=== PATIENT | female | born 1965 | race American Indian/Alaskan Native ===

== ENCOUNTER 2024-04-16 08:30 | Day surgery (SDC) | payer OTHER ==
[2024-04-15 08:52] VITALS: BMI 32.3
[~2024-04-16 08:30] MED LIST: LIDOCAINE 1% (10MG/ML) FOR IV START INTRADERMA PRN
[2024-04-16] MEDS: IV FLUID CONTINUATION 1,000 ML IV ONE ×2 (09:22→14:53)
[2024-04-16] MEDS: LACTATED RINGERS 1,000 ML IV SCH (09:24)
[2024-04-16] MEDS: MIDAZOLAM 2 MG/2 ML VIAL IV ONE (10:27)
--- NOTE | 2024-04-16 10:27 | NM ---
EXAMINATION TYPE: NM sentinel node injection DATE OF EXAM: 04/16/2024 COMPARISON: NONE CLINICAL INDICATION: Female, 58 years old with history of biopsy proven left breast cancer, scheduled for double mastectomy. TECHNIQUE AND FINDINGS: The procedure of sentinel lymph node injection was explained to the patient. The benefits, alternatives, and risks were discussed. An informed consent was then obtained. Overlying skin is cleaned with sterile alcohol. Following this, 497 uCi Tc99m Tilmanocept was inject ed in the upper outer aspect of the left nipple intradermally. The patient tolerated the procedure well without any immediate complication. The patient was kept in the radiology department for short stay after the procedure and then taken to surgery for surgical p rocedure what is presumed intraoperative gamma probe will be used for sentinel lymph node detection. IMPRESSION: Left breast radiotracer injection for sentinel node localization as above. [facility], , 04/16/2024 10:24 AM
--- NOTE | 2024-04-16 10:32 | P.NAPBC ---
NAPBC Queries - NAPBC Queries Was patient's case review presented at [facility] tumor board? If no, comment.: Yes Was patient's pathology reviewed at [facility]? If no, comment.: Yes Was breast conservation surgery offered? If no, comment.: Yes (patient declined) Was sentinel node biopsy offered? If no, comment.: Yes Was diagnosis confirmed by percutaneous core biopsy? 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
[2024-04-16] MEDS: ACETAMINOPHEN TAB 500 MG TAB PO PRN (10:53)
[2024-04-16] MEDS: HEPARIN SODIUM,PORCINE 5,000 UNIT/ML 1 ML VIAL SQ PRN (10:54)
[2024-04-16] MEDS: ONDANSETRON 4 MG/2 ML VIAL IVP ONE (10:54)
[2024-04-16] MEDS: DEXAMETHASONE SOD PHOSPHATE 4 MG/ML 1 ML VIAL IV ONE (10:54)
[2024-04-16 10:56] LABS: Glucose,Whole Blood 85 mg/dL (70-110)
[2024-04-16] MEDS ORDERED: DEXAMETHASONE SOD PHOSPHATE 4 MG/ML 1 ML VIAL ONE (10:58)
[2024-04-16] MEDS ORDERED: KETAMINE HCL IN 0.9 % NACL 50 MG/5 ML SYRINGE ONE (10:58)
[2024-04-16] MEDS ORDERED: PHENYLEPHRINE-0.9% NACL SYG 1,000 MCG/10 ML SYRINGE ONE (10:58)
[2024-04-16] MEDS ORDERED: HYDROmorphone (PF) 1 MG/ML ONE (10:58)
[2024-04-16] MEDS ORDERED: fentaNYL (PF) 50 MCG/ML 2 ML AMP ONE (10:58)
[2024-04-16] MEDS ORDERED: SODIUM CHLORIDE 0.9% (PF) 10 ML VIAL ONE (10:58)
[2024-04-16] MEDS ORDERED: MIDAZOLAM 2 MG/2 ML VIAL ONE (10:58)
[2024-04-16] MEDS ORDERED: ROPIVACAINE 5 MG/ML 30 ML VIAL ONE (10:58)
[2024-04-16] MEDS ORDERED: PROPOFOL 10 MG/ML 20 ML VIAL IV ONE (10:58)
[2024-04-16] MEDS ORDERED: GLYCOPYRROLATE 0.2 MG/ML 2 ML VIAL ONE (10:58)
[2024-04-16] MEDS ORDERED: LIDOCAINE 1% INJ 10MG/ML (20 ML MDV) ONE (10:58)
[2024-04-16] MEDS ORDERED: SUCCINYLCHOLINE CHLORIDE 200 MG/10 ML VIAL IV ONE (10:58)
[2024-04-16] MEDS: SODIUM CHLORIDE 0.9% 100 ML with ceFAZolin 2,000 MG IV ONE (11:03)
[2024-04-16] MEDS: LIDOCAINE 1% INJ 10MG/ML (20 ML MDV) SQ ONE ×2 (11:34→14:22)
--- NOTE | 2024-04-16 12:46 | P.ANPRN ---
Procedure Note - Anesthesia - Nerve Block Performed Bilateral Erector Spinae Single Time Out Performed: Yes Date of Procedure: 04/16/24 Procedure Start Time: : Procedure Stop Time: :38 Location of Patient: PreOp Indication: Acute Post-Operative Pain, Requested by Surgeon Sedation Type: Sedate with meaningful contact maintained Preparation: Sterile Prep Position: Prone Needle Types: Pajunk Needle Gauge: 21 Ultrasound used to visualize needle placement: Yes Ultrasound used to observe medication spread: Yes Blood Aspirated: No Pain Paresthesia on Injection Noted: No Resistance on Injection: Normal Image Stored and Saved: Yes Events: Uneventful and Well Tolerated (Ropivacaine 0.5% 15 cc plus normal saline 10 cc plus dexamethasone 4 mg given bilaterally at T4)
[2024-04-16] MEDS: LACTATED RINGERS 1,000 ML IV ONE (12:56)
[2024-04-16] MEDS ORDERED: MELATONIN 3 MG TABLET PO PRN (14:21)
[2024-04-16] MEDS ORDERED: MORPHINE SULFATE 4 MG/ML SYRINGE IVP PRN (14:21)
[2024-04-16] MEDS ORDERED: NALOXONE 0.4 MG/ML 1 ML VIAL IV PRN (14:21)
[2024-04-16] MEDS ORDERED: ONDANSETRON 4 MG/2 ML VIAL IVP PRN (14:21)
--- NOTE | 2024-04-16 14:21 | P.BCAON ---
Date of Procedure: 04/16/24 Preoperative Diagnosis: Left breast DCIS Postoperative Diagnosis: Same Procedure(s) Performed: Bilateral mastectomy, left sentinel node biopsy Anesthesia: DYLAN Surgeon: Jesika Brock Estimated Blood Loss (ml): 20 IV fluids (ml): 1,300 Pathology: other (Bilateral breast, left axillary lymph node) Condition: stable Disposition: floor Indications for Procedure: Left breast DCIS/bilateral mastodynia Operative Findings: Fibrofatty breast tissue/radioactive sentinel lymph node left axilla Description of Procedure: The patient was seen by radiology where periareolar injection of radiotracer was placed in the left areolar periareolar area. The patient was seen in the preoperative area for markings for bilateral mastectomy were made. The patient was brought to the operative suite. Following induction of anesthesia the neoprobe was used to interrogate the left axilla. Radioactivity was identified. Therefore both breast in the left axilla were prepped and draped in a sterile fashion. The right side was approached initially. Superior skin flap was developed. An inferior skin flap was developed. These were developed down to the pectoralis muscle. The breast was brought from medial to lateral being careful to maintain hemostasis off the pectoralis muscle. The hemostasis was attained using the harmonic scalpel as well as the electrocautery device. The dissection was performed laterally to the axillary tissue. This was transected. The wound was well irrigated. Surgicel in powder form was placed. A #10 flat drain was placed. This was secured using a nylon suture. The subcutaneous tissue was approximated using 3-0 Vicryl suture. This was followed by a 3-0 Vicryl suture running subcuticular suture. This was followed by a 4-0 Monocryl subcutaneous suture. The area of the left breast was approached. The left side was approached initially. Superior skin flap was developed. An inferior skin flap was developed. These were developed down to the pectoralis muscle. The breast was brought from medial to lateral being careful to maintain hemostasis off the pectoralis muscle. The hemostasis was attained using the harmonic scalpel as well as the electrocautery device. The dissection was performed laterally to the axillary tissue. This was interrogated using the neoprobe. An area of radioactivity was identified in the area of the axillary tissue which had been dissected with the breast. A lymph node was identified. The 10-second count on the lymph node was 7968. The background count in the axilla was minimal. The lymph node was sent as the sentinel lymph node. The wound was well irrigated. Surgicel in powder form was placed. A #10 flat drain was placed. This was secured using a nylon suture. The subcutaneous tissue was approximated using 3-0 Vicryl suture. This was followed by a 3-0 Vicryl suture running subcuticular suture. This was followed by a 4-0 Monocryl subcutaneous suture. Surgical glue was placed. All instrument and sponge counts were correct at the end of the case. 20 cc of 1% lidocaine was placed in the area of the incisions. A sterile dressing was applied. The patient tolerated the procedure in stable condition. - Sentinal Node Biopsy Operation performed with curative intent: Yes Tracer(s) used in upfront surgery (non-neoadjuvant): radioactive tracer Tracer(s) used in the neoadjuvant setting: N/A All nodes present at end of dye-filled channel removed: N/A All significantly radioactive nodes were removed: Yes All palpably suspicious nodes were removed: Yes Clipped positive nodes identified and removed: N/A
[2024-04-16] MEDS: HYDROmorphone 0.5 MG/0.5 ML SYRINGE IVP PRN (15:32)
[2024-04-16] MEDS: droPERidol 2.5 MG/ML VIAL IVP ONE (17:18)
[2024-04-16] MEDS: DEXTROSE 5%-0.45% NACL 1,000 ML IV SCH (17:19)
[2024-04-16] MEDS: HEPARIN SODIUM,PORCINE 5,000 UNIT/ML 1 ML VIAL SQ SCH (19:45)
[2024-04-16] MEDS ORDERED: DEXTROSE 50% SYRINGE 50 ML IVP PRN ×2 (19:57)
[2024-04-16 20:51] LABS: Glucose,Whole Blood 210 mg/dL (70-110)
[2024-04-16] MEDS: INSULIN ASPART (NovoLOG) 100 UNIT/ML VIAL SQ SCH (21:23)
[2024-04-16] MEDS: GABAPENTIN 300 MG CAP PO SCH (21:23)
[2024-04-17] MEDS: HYDROcodone/APAP 5-325MG 1 EACH TAB PO PRN (00:39)
[2024-04-17 07:07] LABS: Basophils % (A) 0 %; Eosinophils % (A) 0 %; HCT 35.8 % (34.0-46.0); HGB 11.7 gm/dL (11.4-16.0); Lymphocytes # (A) 1.6 k/uL (1.0-4.8); Lymphocytes % (A) 17 %; MCHC 32.8 g/dL (31.0-37.0); MCV 91.3 fL (80.0-100.0); Mean Platelet Volume 7.7; Monocytes # (A) 0.4 k/uL (0-1.0); Monocytes % (A) 5 %; Neutrophils # (A) 7.4 k/uL (1.3-7.7); Neutrophils % (A) 78 %; Platelet Count 214 k/uL (150-450); RBC 3.92 m/uL (3.80-5.40); RDW 12.8 % (11.5-15.5); WBC 9.5 k/uL (3.8-10.6)
[2024-04-17 08:03] LABS: Glucose,Whole Blood 161 mg/dL (70-110)
[2024-04-17 08:10] VITALS: BP 107/62; PULSE 65; RESP 14; TEMP 97.9
[2024-04-17] MEDS: FLUoxetine HCL 20 MG CAP PO SCH (08:48)
[2024-04-17] MEDS: traMADol 50 MG TAB PO PRN (08:49)
[2024-04-17] MEDS: NON FORMULARY DRUG (Dulaglutide [Trulicity] 0.75 MG/0.5 ML Each) SQ SCH (08:57)
--- NOTE | 2024-04-17 12:38 | P.PN ---
Subjective Progress Note Date: 04/17/24 Principal diagnosis: Postop day #1 bilateral mastectomy with left sentinel node biopsy Patient is doing well postoperatively, her pain is under control. She is tolerating diet. SILVIA output is minimal. White blood cell count 9.5. Hemoglobin 11.7 Objective - Vital Signs Vital signs: Vital Signs Temp 97.9 F 04/17/24 08:00 Pulse 65 04/17/24 08:00 Resp 14 04/17/24 08:00 BP 107/62 04/17/24 08:00 Pulse Ox 96 04/17/24 08:00 FiO2 Intake & Output 04/16/24 04/17/24 04/17/24 18:59 06:59 18:59 Intake Total 1700 Output Total 20 707 Balance 1680 -707 Weight 91.2 kg Intake: IV 1700 Output: Drainage 7 Right Breast 5 left breast 2 Urine 700 Estimated Blood Loss 20 Other: # Voids 1 - Constitutional General appearance: Present: cooperative - EENT Eyes: Present: EOMI ENT: Present: hearing grossly normal - Neck Neck: Present: normal ROM - Respiratory Respiratory: bilateral: CTA - Cardiovascular Heart sounds: normal: S1, S2 - Integumentary Integumentary Comment(s): Incisions clean and dry bilateral, SILVIA output minimal, no seroma on either side Integumentary: Present: normal turgor - Labs CBC & Chem 7: 04/17/24 05:58 Labs: Abnormal Lab Results - Last 24 Hours (Table) 04/16/24 04/17/24 Range/Units 20:49 08:02 POC Glucose (mg/dL) 210 H 161 H (70-110) mg/dL Assessment and Plan Assessment: Impression: Patient doing well postop day #1 bilateral mastectomy with left sentinel node b iopsy done for left breast DCIS Plan: Discharge home Follow-up Dr. Mayorga in 1 week Teach patient drain care
[2024-04-17 13:15] LABS: Glucose,Whole Blood 113 mg/dL (70-110)
--- NOTE | 2024-04-17 14:24 | P.CONS ---
History of Present Illness - Reason for Consult Consult date: 04/17/24 Medical management status post bilateral mastectomy with l sent node biop - History of Present Illness This is a pleasant 58-year-old female who was admitted under oncology surgery services Dr. Mukesh Lorenzo status post bilateral mastectomy with left sentinel node biopsy. Patient is postop day 1 doing relatively well reporting her pain is controlled. Patient will continue with SILVIA drains and close outpatient follow-up with surgeon for removal. Home care is being arranged for the outpatient setting to assist with wound care and dressing changes. Patient does have incentive spirometer encourage the patient to continue using at least 10 times every hour while awake. Patient also while hospitalized recommend to continue on Accu-Cheks with sliding scale and will adjust accordingly. Patient reports she follows with Dr. Lane in the outpatient setting with a past medical history of diabetes mellitus, GERD, sleep apnea, left breast cancer, anxiety, depression, former smoker. Patient denies illicit drug use and occasionally drinks alcohol socially. Patient will continue with drains on discharge and is being educated on REVIEW OF SYSTEMS: CONSTITUTIONAL: No fever, no malaise, no fatigue. HEENT: No recent visual problems or hearing problems. Denied any sore throat. CARDIOVASCULAR: No chest pain, orthopnea, PND, no palpitations, no syncope. PULMONARY: No shortness of breath, no cough, no hemoptysis. GASTROINTESTINAL: No diarrhea, no nausea, no vomiting, no abdominal pain. NEUROLOGICAL: No headaches, no weakness, no numbness. HEMATOLOGICAL: Denies any bleeding or petechiae. GENITOURINARY: Denies any burning micturition, frequency, or urgency. MUSCULOSKELETAL/RHEUMATOLOGICAL: Denies any joint pain, swelling, or any muscle pain. ENDOCRINE: Denies any polyuria or polydipsia. The rest of the 14-point review of systems is negative. PHYSICAL EXAMINATION: GENERAL: The patient is alert and oriented x3, not in any acute distress. Well developed, well nourished. HEENT: Pupils are round and equally reacting to light. EOMI. No scleral icterus. No conjunctival pallor. Normocephalic, atraumatic. No pharyngeal erythema. No thyromegaly. CARDIOVASCULAR: S1 and S2 present. No murmurs, rubs, or gallops. PULMONARY: Chest is clear to auscultation, no wheezing or crackles. ABDOMEN: Soft, nontender, nondistended, normoactive bowel sounds. No palpable organomegaly. MUSCULOSKELETAL: No joint swelling or deformity. EXTREMITIES: No cyanosis, clubbing, or pedal edema. NEUROLOGICAL: Gross neurological examination did not reveal any focal deficits. SKIN: No rashes. Assessment: Status post bilateral mastectomy with left sentinel node biopsy, postop day 1 History of left breast cancer History of diabetes mellitus, type II History of GERD Sleep apnea and does not use a CPAP History of endometriosis History of anxiety/depression Obesity with a BMI of 32.5 Former smoker GI prophylaxis DVT prophylaxis Full code Plan: Patient was admitted under general surgery Dr. Mukesh Lorenzo services status post bilateral mastectomy with left sentinel node biopsy on postop day 1 doing relatively well. Dressings are dry and intact and continues with SILVIA drains. Home care is being arranged and is being educated on drainage procedures Home medications reviewed and resumed as appropriate Discussed with patient regarding tight glycemic control for proper healing During hospitalization patient will continue on sliding scale with Accu-Cheks before meals and at bedtime and will adjust accordingly Recommend incentive spirometer use at least 10 times every hour and bringing home and continuing to use Patient is medically stable once cleared by general surgery. Thank you kindly for this consultation. The impression and plan of care has been dictated by Margarita Jenkins Nurse Rojast itioner as directed. Dr. Maddi MD I have performed a history and examination and MDM of this patient, discussed the same with the dictator, and agree with the dictator's assessment and plan as written ,documented as a scribe. Based on total visit time, I have performed more than 50% of the visit. Past Medical History Past Medical History: Diabetes Mellitus, GERD/Reflux, Sleep Apnea/CPAP/BIPAP Additional Past Medical History / Comment(s): cancerous cells left breast,hx enlarged heart,tb as a child , kidney stones ,fatty liver, no cpap use-uses soft neck brace when sleeping-states improved sleep apnea,endometriosis History of Any Multi-Drug Resistant Organisms: None Reported Past Surgical History: Appendectomy, Cholecystectomy, Hysterectomy, Tonsillec stephane Additional Past Surgical History / Comment(s): nose surgery, lap sx x 3 Past Anesthesia/Blood Transfusion Reactions: No Reported Reaction Additional Past Anesthesia/Blood Transfusion Reaction / Comm: no blood tx hx Smoking Status: Former smoker - Past Family History Father History Unknown: Yes Family Medical History: Cancer, Diabetes Mellitus, Hypertension Additional Family Medical History / Comment(s): POSS LUNG CANCER-PT NOT SURE Mother History Unknown: Yes Family Medical History: Hypertension Additional Family Medical History / Comment(s): pt adopted Brother(s) Family Medical History: Cancer, Hypertension Additional Family Medical History / Comment(s): "cancer is wrapped around intestines" Sister(s) Family Medical History: Diabetes Mellitus, Hypertension Medications and Allergies Home Medications Medication Instructions Recorded Confirmed Type metFORMIN HCL [Glucophage] 1,000 mg PO BID 04/30/15 04/16/24 History FLUoxetine HCL [PROzac] 40 mg PO QAM 08/28/23 04/16/24 History Gabapentin 300 mg PO HS 12/14/23 04/16/24 History traMADol HCL 50 mg PO Q6H PRN 04/04/24 04/16/24 History Dulaglutide [Trulicity] 0.75 mg SQ WE 04/15/24 04/15/24 History oxyCODONE HCL [oxyCODONE HCL (IR)] 5 mg PO Q6H PRN 3 Days #12 cap 04/16/24 Rx Allergies Allergy/AdvReac Type Severity Reaction Status Date / Time No Known Allergies Allergy Verified 04/16/24 09:05 Physical Exam Vitals: Vital Signs Temp Pulse Pulse Resp BP Pulse Ox 04/17/24 08:00 97.9 F 65 14 107/62 96 04/17/24 03:30 96 04/17/24 00:58 98.3 F 77 16 123/75 97 04/16/24 20:00 98.2 F 83 16 123/79 97 04/16/24 17:56 78 16 130/82 98 04/16/24 17:26 78 16 125/79 97 04/16/24 17:11 125/79 04/16/24 16:56 82 16 139/89 97 04/16/24 16:41 98.0 F 87 16 139/76 97 04/16/24 16:23 87 18 147/78 96 04/16/24 16:08 81 18 146/73 96 04/16/24 15:53 85 18 143/75 95 04/16/24 15:38 87 18 147/79 96 04/16/24 15:23 75 16 140/78 99 04/16/24 15:08 84 18 138/74 98 02/18/25 14:53 97 F L 83 14 135/94 94 L 04/16/24 10:44 67 16 148/75 97 Intake and Output 04/16/24 04/17/24 04/17/24 22:59 06:59 14:59 Output Total 350 357 Balance -350 -357 Output: Drainage 7 Right Breast 5 left breast 2 Urine 350 350 Other: # Voids 1 1 Results CBC & Chem 7: 04/17/24 05:58 Labs: Abnormal Lab Results - Last 24 Hours (Table) 04/16/24 04/17/24 Range/Units 20:49 08:02 POC Glucose (mg/dL) 210 H 161 H (70-110) mg/dL
== END 2024-04-17 13:26 | disposition home or self-care (01) ==
LOC: MERGE 08:30 → OR 08:30 → 4FBP 14:35 → OR 04-17 13:26
PROVIDERS: ATTEND Surgery
DX: D05.12 Intraductal carcinoma in situ of left breast (principal); G89.18 Other acute postprocedural pain; N60.12 Diffuse cystic mastopathy of left breast; N60.11 Diffuse cystic mastopathy of right breast; L72.0 Epidermal cyst; D24.2 Benign neoplasm of left breast; E11.9 Type 2 diabetes mellitus without complications; K21.9 Gastro-esophageal reflux disease without esophagitis; K76.0 Fatty (change of) liver, not elsewhere classified; G47.33 Obstructive sleep apnea (adult) (pediatric); I51.7 Cardiomegaly; Z87.891 Personal history of nicotine dependence; Z79.84 Long term (current) use of oral hypoglycemic drugs; Z79.899 Other long term (current) drug therapy; Z90.710 Acquired absence of both cervix and uterus; Z90.49 Acquired absence of other specified parts of digestive tract; Z87.442 Personal history of urinary calculi; Z98.890 Other specified postprocedural states; Z80.3 Family history of malignant neoplasm of breast; Z86.11 Personal history of tuberculosis; Z90.89 Acquired absence of other organs
CPT/HCPCS: 19303; 38525; 64999; 88304; 85025; 88342; 88307; 88341; 83036; 38792; A9520; J2250; J0330; J1644 ×2; J1100; J2405; J0690; J2003; J3010; J1171 ×2; J2795; J2704; J2371; J1596

== ENCOUNTER 2024-04-20 14:49 | Emergency (ER) | payer OTHER ==
[2024-04-20 15:11] VITALS: BP 127/78; PULSE 78; RESP 18; TEMP 98.3
--- NOTE | 2024-04-20 15:46 | ED ---
Recheck HPI - General Chief Complaint: Recheck/Abnormal Lab/Rx Stated Complaint: Post-op comp Time Seen by Provider: 04/20/24 15:16 Source: patient, RN notes reviewed, old records reviewed Mode of arrival: wheelchair Limitations: no limitations - History of Present Illness Initial Comments: This is a 58-year-old female to the ER for evaluation of left breast pain bilateral breast pain and nondraining SILVIA drain left breast. Patient had mass removed left breast biopsy, left lymph node removal as well as bilateral breast removal, patient presents with pain today nondraining left SILVIA drain. No fevers otherwise feels well, patient for recheck of SILVIA drain not working MD Complaint: wound re-check (Left SILVIA drain not draining) -: days(s) (3) Returns Today for: wound recheck, persistent/worsening pain related to initial visit Symptoms Since Prior Visit: worsening pain (No redness swelling or purulent discharge), fever (No fever) Associated Symptoms: none Treatments Prior to Arrival: Given Pain Meds on - Related Data Allergies Allergy/AdvReac Type Severity Reaction Status Date / Time No Known Allergies Allergy Verified 04/20/24 15:11 Review of Systems ROS Statement: Those systems with pertinent positive or pertinent negative responses have been documented in the HPI. ROS Other: All systems not noted in ROS Statement are negative. Past Medical History Past Medical History: Cancer, Diabetes Mellitus History of Any Multi-Drug Resistant Organisms: None Reported Past Surgical History: Appendectomy, Breast Surgery, Cholecystectomy, Hysterectomy, Tonsillectomy Past Psychological History: No Psychological Hx Reported Smoking Status: Never smoker Past Alcohol Use History: None Reported Past Drug Use History: None Reported General Exam General appearance: alert, in no apparent distress Head exam: Present: atraumatic, normocephalic, normal inspection Eye exam: Present: normal appearance, PERRL, EOMI. Absent: scleral icterus, conjunctival injection, periorbital swelling ENT exam: Present: normal exam, mucous membranes moist Neck exam: Present: normal inspection. Absent: tenderness, meningismus, lymphadenopathy Respiratory exam: Present: normal lung sounds bilaterally. Absent: respiratory distress, wheezes, rales, rhonchi, stridor Cardiovascular Exam: Present: regular rate, normal rhythm, normal heart sounds. Absent: systolic murmur, diastolic murmur, rubs, gallop, clicks GI/Abdominal exam: Present: soft, normal bowel sounds. Absent: distended, tenderness, guarding, rebound, rigid Extremities exam: Present: normal inspection, full ROM, normal capillary refill. Absent: tenderness, pedal edema, joint swelling, calf tenderness Back exam: Present: normal inspection Neurological exam: Present: alert, oriented X3, CN II-XII intact Psychiatric exam: Present: normal affect, normal mood Skin exam: Present: warm, dry, intact, normal color. Absent: rash Course Vital Signs 04/20/24 15:05 Temperature 98.3 F Pulse Rate 78 Respiratory 18 Rate Blood Pressure 127/78 O2 Sat by Pulse 98 Oximetry - Reevaluation(s) Reevaluation #1: 04/20/24 15:47 medical record is reviewed Reevaluation #2: 04/20/24 16:02 Left SILVIA drain is removed patient does have bloody serosanguineous drainage, no purulence No significant redness noted to site of drain Breast is tender into the left axilla Reevaluation #3: 04/20/24 16:03 Patient informed of results questions answered Reevaluation #4: Was pt. sent in by a medical professional or institution (, PA, SECURITIES UNDERWRITER, urgent care, hospital, or prison...) When possible be specific @ -no Did you speak to anyone other than the patient for history (EMS, parent, family, police, friend...)? What history was obtained from this source @ -no Did you review nursing and triage notes (agree or disagree)? Why? @ -agree Are old charts reviewed (outside hosp., previous admission, EMS record, old EKG, old radiological studies, urgent care reports/EKG's, prison records)? Report findings @ -yes Differential Diagnosis (chest pain, altered mental status, abdominal pain women, abdominal pain men, vaginal bleeding, weakness, fever, dyspnea, syncope, headache, dizziness, GI bleed, back pain, seizure, CVA, palpatations, mental health, musculoskeletal)? @ -prior EKG interpreted by me (3pts min.). @ -yes X-rays interpreted by me (1pt min.). @ -yes negative for acute disease CT interpreted by me (1pt min.). @ -no U/S interpreted by me (1pt. min.). @ -no What testing was considered but not performed or refused? (CT, X-rays, U/S, labs)? Why? @ -none What meds were considered but not given or refused? Why? @ -none Did you discuss the management of the patient with other professionals (professionals i.e. , PA, SECURITIES UNDERWRITER, lab, RT, psych nurse, marriage and family social worker, medical office representative, teacher, benefits officer, geriatric case manager)? Give summary @ -no Was smoking cessation discussed for >3mins.? @ -no Was critical care preformed (if so, how long)? @ -no Were there social determinants of health that impacted care today? How? ( Homelessness, low income, unemployed, alcoholism, drug addiction, transportation, low edu. Level, literacy, decrease access to med. care, penitentiary, rehab)? @ -none Was there de-escalation of care discussed even if they declined (Discuss DNR or withdrawal of care, Hospice)? DNR status @ -no What co-morbidities impacted this encounter? (DM, HTN, Smoking, COPD, CAD, Cancer, CVA, ARF, Chemo, Hep., AIDS, mental health diagnosis, sleep apnea, morbid obesity)? @ -none Was patient admitted / discharged? Hospital course, mention meds given and route, prescriptions, significant lab abnormalities, going to OR and other pertinent info. @ - Undiagnosed new problem with uncertain prognosis? @ -no Drug Therapy requiring intensive monitoring for toxicity (Heparin, Nitro, Insulin, Cardizem)? @ -no Were any procedures done? @ -no Diagnosis/symptom? @ - Acute, or Chronic, or Acute on Chronic? @ -Acute Uncomplicated (without systemic symptoms) or Complicated (systemic symptoms)? @ -Complicated Side effects of treatment? @ -no Exacerbation, Progression, or Severe Exacerbation? @ -exacerbation Poses a threat to life or bodily function? How? (Chest pain, [place], [place], pneumonia, PE, COPD, DKA, ARF, appy, cholecystitis, CVA, Diverticulitis, Homicidal, Suicidal, threat to staff... and all critical care pts) @ -yes - Consultations Consultation #1: Spoke with Dr. Mukesh Lorenzo on-call, able to see patient Monday into Monday next week Medical Decision Making - Medical Decision Making 58 female to ER for evaluation of left PD drain not working. Patient has left SILVIA drain removed here by myself, serosanguineous drainage no purulence, left breast tenderness, nonstick bandage applied to area and patient can be discharged home Disposition Clinical Impression: Encounter for removal of sutures, Encounter for wound re-check, Breast pain, left, SILVIA drain, broken Disposition: HOME SELF-CARE Condition: Good Instructions (If sedation given, give patient instructions): Pain Management After Surgery (DC) Is patient prescribed a controlled substance at d/c from ED?: No Referrals: Brian Lane MD [Primary Care Provider] - 1-2 days Time of Disposition: 16:00
== END 2024-04-20 16:52 | disposition home or self-care (01) ==
LOC: EC 14:49
DX: N64.4 Mastodynia (principal); Z48.02 Encounter for removal of sutures; Z48.03 Encounter for change or removal of drains; Z48.00 Encounter for change or removal of nonsurgical wound dressing
CPT/HCPCS: 99282

== ENCOUNTER → 2024-04-23 | Outpatient (CLI) | payer OTHER ==
[2024-04-23 08:10] VITALS: BP 109/70; PULSE 76; RESP 17; TEMP 97.9
--- NOTE | 2024-04-23 08:39 | P.BCPO ---
Progress Note - Text Progress Note Date: 04/23/24 Maria E is status post bilateral mastectomy in 04-16-2024. Postoperatively the drain on the left side was not working well and she was seen in the emergency room where the drain was removed on 04-20-24. Since that time she has not had drainage from that side. The discomfort that she had at the drain site on that side has subsided. She does have approximately 130 cc of dark serous fluid from the right drain per day. She has not had any fever or chills. Results revealed DCIS in the left breast with negative margins. Right breast fibrocystic changes 3 lymph nodes removed all negative for metastatic disease. A copy of the pathology report was given to the patient and her mother and discussed with them. Lungs: Clear Heart: Regular rate and rhythm Incision: Clean and dry bilateral Seroma left chest wall Following informed consent the area of concern in the left breast was prepped using alcohol. An 18-gauge needle and a 20 cc syringe was used to aspirate 80 cc of dark-colored serous fluid. There appeared to be complete resolution of the seroma. There was no seroma on the right side to aspirate. An attempt to draw fluid from the SILVIA drain was not successful. There is some minimal drainage at the insertion site of the SILVIA drain. Post Op Education - Post Op Education Post Op Education Provided Date: 04/23/24 Path Report - Was patient given path report? Path Report Date Given: 04/23/24
== END ==
LOC: WWCWWP 07:50
PROVIDERS: ATTEND Surgery
DX: D05.12 Intraductal carcinoma in situ of left breast (principal); Z87.891 Personal history of nicotine dependence

== ENCOUNTER → 2024-04-25 | Outpatient (CLI) | payer OTHER ==
[2024-04-25 09:03] VITALS: BP 114/76; PULSE 74; RESP 17; TEMP 97.5
--- NOTE | 2024-04-25 09:16 | P.PN ---
Subjective Progress Note Date: 04/25/24 Principal diagnosis: bilateral mastectomy 04-16-23 Maria E is status post bilateral mastectomy in 04-16-2024. Postoperatively the drain on the left side was not working well and she was seen in the emergency room where the drain was removed on 04-20-24. Since that time she has not had drainage from that side. The discomfort that she had at the drain site on that side has subsided. She did have approximately 130 cc of dark serous fluid from the right drain per day. Needs decreased to none over the last 24 hours. She has not had any fever or chills. On 04-23-24 80 cc seroma aspirated from the left mastectomy site. 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 Right breast fibrocystic changes 3 lymph nodes removed left all negative for metastatic disease. A copy of the pathology report was given to the patient and her mother and discussed with them on 04-23-24. Lungs: Clear Heart: Regular rate and rhythm Incision: Clean and dry bilateral Seroma left chest wall Following informed consent the area of concern in the left breast was prepped using alcohol. An 18-gauge needle and a 20 cc syringe was used to aspirate 75 cc of dark-colored serous fluid. There appeared to be complete resolution of the seroma. There was no seroma on the right side to aspirate. Post Op Education - Post Op Education Post Op Education Provided Date: 04/23/24 Path Report - Was patient given path report? Path Report Date Given: 04/23/24 Objective - Vital Signs Vital signs: Intake & Output 04/24/24 04/25/24 04/25/24 18:59 06:59 18:59 Weight 92.533 kg
== END ==
LOC: WWCWWP 08:43 → MERGE 09:00
PROVIDERS: ATTEND Surgery
DX: D05.12 Intraductal carcinoma in situ of left breast (principal); N60.11 Diffuse cystic mastopathy of right breast; Z87.891 Personal history of nicotine dependence

== ENCOUNTER → 2024-05-02 | Outpatient (CLI) | payer OTHER ==
--- NOTE | 2024-05-02 12:12 | P.PN ---
Subjective Progress Note Date: 05/02/24 05-02-24 Principal diagnosis: bilateral mastectomy 04-16-23 Maria E is status post bilateral mastectomy on 04-16-2024. Postoperatively the drain on the left side was not working well and she was seen in the emergency room where the drain was removed on 04-20-24. Since that time she has not had drainage from that side. The discomfort that she had at the drain site on that side has subsided. Right drain removed on last visit. Has bilateral seromas but the pain that she had prior has subsided. On 04-23-24 80 cc seroma aspirated from the left mastectomy site. 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 Right breast fibrocystic changes 3 lymph nodes removed left all negative for metastatic disease. A copy of the pathology report was given to the patient and her mother and discussed with them on 04-23-24. Note medical oncology reviewed 04 29 24 reviewed, she is not felt to be a candidate for hormone blocking therapy. Lungs: Clear Heart: Regular rate and rhythm Incision: Clean and dry bilateral Seroma bilateral chest wall Following informed consent the area of concern in the left breast was prepped using alcohol. An 18-gauge needle and a 20 cc syringe was used to aspirate 142 cc of dark-colored serous fluid. There appeared to be complete resolution of the seroma. The area of the right chest wall was prepped using alcohol. An 18- gauge needle on a 20 cc syringe was used to aspirate 102 cc of straw-colored fluid. There appeared to be complete resolution of the seroma. The patient tolerated the procedure in stable condition. Post Op Education - Post Op Education Post Op Education Provided Date: 04/23/24 Path Report - Was patient given path report? Path Report Date Given: 04/23/24 Additional CC's: Gail Anna
[2024-05-02 12:41] VITALS: BP 128/85; PULSE 79; RESP 17; TEMP 97.2
== END ==
LOC: WWCWWP 11:14
PROVIDERS: ATTEND Surgery
DX: N60.11 Diffuse cystic mastopathy of right breast (principal); Z90.13 Acquired absence of bilateral breasts and nipples; Z87.891 Personal history of nicotine dependence

== ENCOUNTER → 2024-05-10 | Outpatient (CLI) | payer OTHER ==
[2024-05-10 10:41] VITALS: BP 128/72; PULSE 74; RESP 16; TEMP 98.3
--- NOTE | 2024-05-10 11:01 | P.PN ---
Subjective Progress Note Date: 05/10/24 05-10-24 Principal diagnosis: bilateral mastectomy 04-16-23 Maria E is status post bilateral mastectomy on 04-16-2024. Postoperatively the drain on the left side was not working well and she was seen in the emergency room where the drain was removed on 04-20-24. Since that time she has not had drainage from that side. The discomfort that she had at the drain site on that side has subsided. Right drain removed on last visit. Has bilateral seromas but the pain that she had prior has subsided. On 04-23-24 80 cc seroma aspirated from the left mastectomy site. 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 Right breast fibrocystic changes 3 lymph nodes removed left all negative for metastatic disease. A copy of the pathology report was given to the patient and her mother and discussed with them on 04-23-24. Note medical oncology reviewed 04 29 24 reviewed, she is not felt to be a candidate for hormone blocking therapy. Lungs: Clear Heart: Regular rate and rhythm Incision: Clean and dry bilateral Seroma bilateral chest wall Following informed consent the area of concern in the left breast was prepped using alcohol. An 18-gauge needle and a 20 cc syringe was used to aspirate 210 cc of dark-colored serous fluid. There appeared to be complete resolution of the seroma. The area of the right chest wall was prepped using alcohol. An 18- gauge needle on a 20 cc syringe was used to aspirate 145 cc of straw-colored fluid. There appeared to be complete resolution of the seroma. The patient tolerated the procedure in stable condition. Objective - Vital Signs Vital signs: Vital Signs Temp 98.3 F 05/10/24 10:36 Pulse 74 05/10/24 10:36 Resp 16 05/10/24 10:36 BP 128/72 05/10/24 10:36 Pulse Ox 96 05/10/24 10:36 FiO2 Intake & Output 05/09/24 05/10/24 05/10/24 18:59 06:59 18:59 Weight 88.451 kg
== END ==
LOC: WWCWWP 09:40
PROVIDERS: ATTEND Surgery
DX: D05.12 Intraductal carcinoma in situ of left breast (principal); N60.11 Diffuse cystic mastopathy of right breast; Z90.12 Acquired absence of left breast and nipple; Z87.891 Personal history of nicotine dependence

== ENCOUNTER → 2024-05-16 | Outpatient (CLI) | payer OTHER ==
[2024-05-16 09:30] VITALS: BP 128/80; PULSE 92; RESP 17; TEMP 97.2
--- NOTE | 2024-05-16 09:41 | P.BCPO ---
Progress Note - Text Progress Note Date: 05/16/24 05-16-24 Principal diagnosis: bilateral mastectomy 04-16-23 Maria E is status post bilateral mastectomy on 04-16-2024. Postoperatively the drain on the left side was not working well and she was seen in the emergency room where the drain was removed on 04-20-24. Since that time she has not had drainage from that side. The discomfort that she had at the drain site on that side has subsided. Right drain removed on last visit. Has bilateral seromas but the pain that she had prior has subsided. On 04-23-24 80 cc seroma aspirated from the left mastectomy site. 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 Right breast fibrocystic changes 3 lymph nodes removed left all negative for metastatic disease. A copy of the pathology report was given to the patient and her mother and discussed with them on 04-23-24. Note medical oncology reviewed 04 29 24 reviewed, she is not felt to be a candidate for hormone blocking therapy. Lungs: Clear Heart: Regular rate and rhythm Incision: Clean and dry bilateral Seroma bilateral chest wall Following informed consent the area of concern in the left breast was prepped using alcohol. An 18-gauge needle and a 20 cc syringe was used to aspirate 95 cc of straw-colored serous fluid. There appeared to be complete resolution of the seroma. The area of the right chest wall was prepped using alcohol. An 18- gauge needle on a 20 cc syringe was used to aspirate 30 cc of straw-colored fluid. There appeared to be complete resolution of the seroma. The patient tolerated the procedure in stable condition. Plan: Duration bilateral seroma Follow-up 2 weeks
== END ==
LOC: WWCWWP 08:53
PROVIDERS: ATTEND Surgery
DX: N60.11 Diffuse cystic mastopathy of right breast (principal); Z87.891 Personal history of nicotine dependence

== ENCOUNTER → 2024-05-30 | Outpatient (CLI) | payer OTHER ==
--- NOTE | 2024-05-30 11:08 | P.PN ---
Subjective Progress Note Date: 05/30/24 05-16-24 Principal diagnosis: bilateral mastectomy 04-16-23 Maria E is status post bilateral mastectomy on 04-16-2024. Postoperatively the drain on the left side was not working well and she was seen in the emergency room where the drain was removed on 04-20-24. Since that time she has not had drainage from that side. The discomfort that she had at the drain site on that side has subsided. Right drain removed on last visit. Has bilateral seromas but the pain that she had prior has subsided. On 04-23-24 80 cc seroma aspirated from the left mastectomy site. 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 Right breast fibrocystic changes 3 lymph nodes removed left all negative for metastatic disease. A copy of the pathology report was given to the patient and her mother and discussed with them on 04-23-24. Note medical oncology reviewed 04 29 24 reviewed, she is not felt to be a candidate for hormone blocking therapy. Lungs: Clear Heart: Regular rate and rhythm Incision: Clean and dry bilateral Seroma bilateral chest wall Following informed consent the area of concern in the left breast was prepped using alcohol. An 18-gauge needle and a 20 cc syringe was used to aspirate 180 cc of straw-colored serous fluid. There appeared to be complete resolution of the seroma. The area of the right chest wall was prepped using alcohol. An 18- gauge needle on a 20 cc syringe was used to aspirate 80 cc of straw-colored fluid. There appeared to be complete resolution of the seroma. The patient tolerated the procedure in stable condition. Plan: aspiration bilateral seroma Follow-up 2 weeks
[2024-05-30 11:36] VITALS: BP 117/77; PULSE 87; RESP 17; TEMP 97.8
== END ==
LOC: WWCWWP 10:44
PROVIDERS: ATTEND Surgery
DX: N60.11 Diffuse cystic mastopathy of right breast (principal); N64.89 Other specified disorders of breast; Z87.891 Personal history of nicotine dependence

== ENCOUNTER → 2024-06-06 | Outpatient (CLI) | payer OTHER ==
--- NOTE | 2024-06-06 15:35 | P.BCPO ---
Progress Note - Text Progress Note Date: 06/06/24 Principal diagnosis: bilateral mastectomy 04-16-23 Maria E is status post bilateral mastectomy on 04-16-2024. Postoperatively the drain on the left side was not working well and she was seen in the emergency room where the drain was removed on 04-20-24. Since that time she has not had drainage from that side. The discomfort that she had at the drain site on that side has subsided. Right drain removed on last visit. Has bilateral seromas but the pain that she had prior has subsided. On 04-23-24 80 cc seroma aspirated from the left mastectomy site. 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 Right breast fibrocystic changes 3 lymph nodes removed left all negative for metastatic disease. A copy of the pathology report was given to the patient and her mother and discussed with them on 04-23-24. Note medical oncology reviewed 04 29 24 reviewed, she is not felt to be a candidate for hormone blocking therapy. Lungs: Clear Heart: Regular rate and rhythm Incision: Clean and dry bilateral Seroma bilateral chest wall Following informed consent the area of concern in the left breast was prepped using alcohol. An 18-gauge needle and a 20 cc syringe was used to aspirate 140 cc of straw-colored serous fluid. There appeared to be complete resolution of the seroma. No seroma to aspirate on the left side. Plan: aspiration left chest wall seroma Follow-up 2 weeks
[2024-06-06 15:48] VITALS: BP 157/93; PULSE 71; RESP 16; TEMP 97.9
== END ==
LOC: WWCWWP 15:24
PROVIDERS: ATTEND Surgery
DX: Z53.9 Procedure and treatment not carried out, unspecified reason (principal)

== ENCOUNTER → 2024-06-20 | Outpatient (CLI) | payer OTHER ==
--- NOTE | 2024-06-20 14:32 | P.BCPO ---
Progress Note - Text Progress Note Date: 06/20/24 06-20-24 Principal diagnosis: bilateral mastectomy 04-16-23 Maria E is status post bilateral mastectomy on 04-16-2024. Postoperatively the drain on the left side was not working well and she was seen in the emergency room where the drain was removed on 04-20-24. Since that time she has not had drainage from that side. The discomfort that she had at the drain site on that side has subsided. Right drain removed. Has bilateral seromas but the pain that she had prior has subsided. On 04-23-24 80 cc seroma aspirated from the left mastectomy site. 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 Right breast fibrocystic changes 3 lymph nodes removed left all negative for metastatic disease. A copy of the pathology report was given to the patient and her mother and discussed with them on 04-23-24. Note medical oncology reviewed 04 29 24 reviewed, she is not felt to be a candidate for hormone blocking therapy. Lungs: Clear Heart: Regular rate and rhythm Incision: Clean and dry bilateral Seroma Following informed consent the area of concern in the left breast was prepped using alcohol. An 18-gauge needle and a 20 cc syringe was used to aspirate 20 cc of straw-colored serous fluid. There appeared to be complete resolution of the seroma. A second site of fluctuance was identified this was prepped using chlorhexidine. An 18-gauge needle on a 20 cc syringe was used to aspirate 15 cc of straw-colored fluid. There appeared to be complete resolution of the seroma. Plan: aspiration left chest wall seroma Follow-up 2 weeks
[2024-06-20 14:35] VITALS: BP 115/75; PULSE 66; RESP 16; TEMP 97.9
== END ==
LOC: WWCWWP 13:15
PROVIDERS: ATTEND Surgery
DX: N64.89 Other specified disorders of breast (principal); Z90.13 Acquired absence of bilateral breasts and nipples; Z87.891 Personal history of nicotine dependence

== ENCOUNTER → 2024-07-04 | Outpatient (CLI) | payer OTHER ==
[2024-07-04 13:03] VITALS: BP 148/79; PULSE 77; RESP 17; TEMP 97.8
--- NOTE | 2024-07-04 13:24 | P.PN ---
Subjective Progress Note Date: 07/04/24 07-04-24 Principal diagnosis: bilateral mastectomy 04-16-23 Maria E is status post bilateral mastectomy on 04-16-2024. Postoperatively the drain on the left side was not working well and she was seen in the emergency room where the drain was removed on 04-20-24. 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 Right breast fibrocystic changes 3 lymph nodes removed left all negative for metastatic disease. A copy of the pathology report was given to the patient and her mother and discussed with them on 04-23-24. She has pain in her right shoulder and will have an exploration of this area on July 31. On 04-23-24 80 cc seroma aspirated from the left mastectomy site. 04-25-24 75 cc seroma aspirated from the left mastectomy site 05-02-24 right breast 102 cc fluid; left breast 142 cc cc fluid 05-10-24 right breast 145 cc fluid, left breast 210 cc fluid 05-16-24 right breast 30 cc, left breast 95 cc straw colored fluid 05-30-24 right breast: 80 cc straw colored fluid left breast 180 cc straw colored fluid 06-05-24 140 cc serous fluid left side, no seroma right side 06-20-24 lateral aspect of left side of chest wall 20 cc of serous fluid aspirated, medial aspect of chest wall 15 cc of fluid aspirated Note medical oncology reviewed 04 29 24 reviewed, she is not felt to be a candidate for hormone blocking therapy. Lungs: Clear Heart: Regular rate and rhythm Incision: Clean and dry bilateral Seroma: none present today Plan: Follow-up 4 months follow up sooner any concerns CC: Jacquelyn Anna Objective - Vital Signs Vital signs: Vital Signs Temp 97.8 F 07/04/24 13:01 Pulse 77 07/04/24 13:01 Resp 17 07/04/24 13:01 BP 148/79 07/04/24 13:01 Pulse Ox 99 07/04/24 13:01 FiO2 Intake & Output 07/03/24 07/04/24 07/04/24 18:59 06:59 18:59 Weight 88.451 kg
== END ==
LOC: WWCWWP 12:33
PROVIDERS: ATTEND Surgery
DX: N60.11 Diffuse cystic mastopathy of right breast (principal); N60.12 Diffuse cystic mastopathy of left breast; N64.89 Other specified disorders of breast; Z90.13 Acquired absence of bilateral breasts and nipples; Z87.891 Personal history of nicotine dependence

== ENCOUNTER → 2024-09-04 | Outpatient (CLI) | payer OTHER ==
[2024-09-04 10:06] LABS: INR 1.0 (<1.2); Partial Thromboplastin Time 23.2 sec (22.0-30.0); Prothrombin Time 10.7 sec (10.0-12.5)
--- NOTE | 2024-09-04 10:37 | XR ---
EXAMINATION TYPE: XR chest 2V DATE OF EXAM: 09/04/2024 10:26 AM COMPARISON: Chest radiographs from 05/26/2022 TECHNIQUE: XR chest 2V Frontal and lateral views of the chest. CLINICAL INDICATION:Female, 58 years old with history of Z01.818; FINDINGS: Lungs/Pleura: There is no evidence of pleural effusion, focal consolidation, or pneumothorax. Pulmonary vascularity: Unremarkable. Heart/mediastinum: Cardiomediastinal silhouette is unremarkable. Musculoskeletal: No acute osseous pathology. Mild dextrocurvature of the thoracic spine. IMPRESSION: No acute cardiopulmonary disease/process. [facility], , 09/04/2024 10:35 AM
[2024-09-04 15:11] LABS: Basophils # (A) 0.05 X 10*3/uL (0.00-0.10); Basophils % (A) 0.7 %; Eosinophils # (A) 0.22 X 10*3/uL (0.04-0.35); Eosinophils % (A) 3.1 %; HCT 38.7 % (37.2-46.3); HGB 12.1 g/dL (12.0-15.0); Immature Grans, Automated 0.30 %; Lymphocytes # (A) 2.31 X 10*3/uL (0.90-5.00); Lymphocytes % (A) 32.5 %; MCH 29.1 pg (27.0-32.0); MCHC 31.3 g/dL (32.0-37.0); MCV 93.0 FL (80.0-97.0); Monocytes # (A) 0.52 X 10*3/uL (0.20-1.00); Monocytes % (A) 7.3 %; NRBC Per 100 WBC 0 X 10*3/uL (0.00-0.01); Neutrophils # (A) 3.99 X 10*3/uL (1.80-7.70); Neutrophils % (A) 56.1 %; Platelet Count 244 X 10*3/uL (140-440); RBC 4.16 X 10*6/uL (4.10-5.20); RDW 13.8 % (11.5-14.5); WBC 7.11 X 10*3/uL (4.50-10.00)
[2024-09-04 15:31] LABS: Anion Gap 9.40 mmol/L (4.00-12.00); BUN/Creat Ratio 16.75 Ratio (12.00-20.00); Blood Urea Nitrogen 13.4 mg/dL (9.0-27.0); Calcium 9.4 mg/dL (8.7-10.3); Carbon Dioxide 26.6 mmol/L (21.6-31.8); Chloride 105 mmol/L (96-109); Glucose 116 mg/dL (70-110); Potassium 4.7 mmol/L (3.5-5.5); Sodium 141 mmol/L (135-145)
[2024-09-04 15:32] LABS: Bilirubin,Urine Negative (Negative); Blood,Urine Negative (Negative); Color,Urine Yellow (Yellow); Ketones,Urine Trace (Negative); Nitrite,Urine Negative (Negative); PH, Urine 5.0; Specific Gravity,Urine 1.028 (1.001-1.030); Urobilinogen,Urine 1.0 E.U./DL
[2024-09-04 15:44] LABS: Bacteria,Urine None Seen (None Seen); Calcium Oxalate Crystals,Urine Present (None Seen)
== END | disposition home or self-care (01) ==
LOC: LABPAT 09:00
PROVIDERS: ATTEND Orthopaedic Surgery Orthopaedic Surgery of the Spine
DX: Z01.818 Encounter for other preprocedural examination (principal); M48.02 Spinal stenosis, cervical region; Z22.322 Carrier or suspected carrier of Methicillin resistant Staphylococcus aureus
CPT/HCPCS: 71046; 80048; 81001; 85025; 85610; 85730; 87070; 93005

== ENCOUNTER → 2024-09-20 | Outpatient (CLI) | payer OTHER | END | disposition home or self-care (01) | LOC: LABPAT 11:30 | PROVIDERS: ATTEND Orthopaedic Surgery Orthopaedic Surgery of the Spine | DX: Z01.812 Encounter for preprocedural laboratory examination (principal); Z22.322 Carrier or suspected carrier of Methicillin resistant Staphylococcus aureus; M48.02 Spinal stenosis, cervical region | CPT/HCPCS: 86850; 86900; 86901 ==

== ENCOUNTER 2024-09-25 06:46 | Day surgery (SDC) | payer OTHER ==
[2024-09-19 10:13] VITALS: BMI 32.3
[2024-09-25] MEDS ORDERED: HYDROmorphone 0.5 MG/0.5 ML SYRINGE IVP PRN ×2 (07:00→10:36)
[2024-09-25 07:37] LABS: Glucose,Whole Blood 131 mg/dL (70-110)
[2024-09-25] MEDS: IV FLUID CONTINUATION 1,000 ML IV ONE ×2 (07:38→07:56)
[2024-09-25] MEDS: ONDANSETRON 4 MG/2 ML VIAL IVP ONE (07:47)
[2024-09-25] MEDS: LACTATED RINGERS 1,000 ML IV SCH (07:47)
[2024-09-25] MEDS: LIDOCAINE 2%-EPI 1:100,000 20 ML VIAL SQ ONE (09:18)
[2024-09-25] MEDS: THROMBIN (BOVINE) 5,000 UNIT VIAL TOPICAL ONE (09:18)
[2024-09-25] MEDS: BUPIVACAINE (PF) 0.5% 30 ML VIAL SQ ONE (09:18)
[2024-09-25] MEDS: ceFAZolin 1,000 MG in SODIUM CHLORIDE 0.9% IRRIGATIO 1,000 ML IRRIGATION PRN (09:29)
--- NOTE | 2024-09-25 09:49 | XR ---
EXAMINATION TYPE: XR cervical spine 1V DATE OF EXAM: 09/25/2024 9:44 AM INDICATION: Patient age:Female; 58 years old; Reason for study: NEEDLE PLACEMENT; PHH, pain COMPARISON: MR cervical spine 03/11/2024 TECHNIQUE: The cervical spine was imaged in single lateral projection. FINDINGS: Limited examination due to underpenetration. The osseous structures show normal alignment without evidence of an acute fracture single lateral vie w. Anterior approach needle identified at the C5-C6 level. Partial visualization of endotracheal and enteric tubes. IMPRESSION: Anterior approach needle identified at the C5-C6 level [facility], , 09/25/2024 9:47 AM
[2024-09-25] MEDS ORDERED: HYDROmorphone 1 MG/ML 1 ML SYRINGE IVP PRN (10:36)
[2024-09-25] MEDS ORDERED: traMADol 50 MG TAB PO PRN (10:38)
--- NOTE | 2024-09-25 10:42 | XR ---
EXAMINATION TYPE: XR cervical spine 1V DATE OF EXAM: 09/25/2024 10:36 AM INDICATION: Patient age:Female; 58 years old; Reason for study: Hardware Placement; PHH, pain COMPARISON: Cervical spine radiograph of the same date, MR cervical spine 03/11/2024 TECHNIQUE: The cervical spine was imaged in single lateral projection. FINDINGS: Postsurgical changes of anterior cervical fusion involving C5-C7. Intervertebral disc hardware identi fied. Hardware appears intact with appropriate alignment. Normal alignment of the visualized cervical spine. No evidence for acute fracture. Partial visualization of endotracheal tube. IMPRESSION: Postsurgical changes from ACDF C5-C7. Hardware appears intact with appropriate alignment. [facility], , 09/25/2024 10:40 AM
--- NOTE | 2024-09-25 10:43 | P.OP ---
Date of Procedure: 09/25/24 Preoperative Diagnosis: Cervical stenosis C5-6 C6-7, herniated nucleus pulposus C5-6 C6-7, upper extremity radiculopathy, extruded disc fragment behind C6, Postoperative Diagnosis: Same Anesthesia: GETA Pathology: none sent Condition: stable Disposition: PACU Description of Procedure: BRIEF OPERATIVE NOTE Preoperative Diagnosis:Cervical stenosis C5-6 C6-7, herniated nucleus pulposus C5-6 C6-7, upper extremity radiculopathy, extruded disc fragment behind C6, Postoperative Diagnosis:Cervical stenosis C5-6 C6-7, herniated nucleus pulposus C5-6 C6-7, upper extremity radiculopathy, extruded disc fragment behind C6, Procedure: Anterior cervical decompression discectomy and fusion C5-6 C6-7 Placement of interbody graft C5-6 C6-7 Application of anterior cervical plate C5-6 and 7 Surgeon: Dr. Martínez Resource Manager Forester: Jimbo CAMILO who is present throughout the entire the case persistence during positioning, dissection, exposure, visualization, and all crucial elements of the case as well as closure. Anesthesia: General anesthesia per Dr. Reyes Estimated blood loss: Approximately 75 cc Complications: None apparent Components implanted: [place] anterior cervical plate system with the Vikos interbody allograft bone graft and 1 cc of DBX bone putty Disposition: To recovery room in good stable condition. OPERATIVE INDICATIONS The patient has had long-standing issues in their neck and upper extremities. She has been having significant worsening over the past couple of months. She was having significant issues at her neck and had her bilateral upper extremities worse on the right than the left. Patient was found to have significant stenosis C5-6 C6-7 with evidence of disc herniation with extruded fragment. The fragment extended behind the vertebral body of C6 and was causing stenosis from C5-6 to C6-7. These findings correlate well with her neck and upper extremity symptoms. The patient has been through conservative treatment. She was not having any prolonged benefit despite aggressive conservative care. We discussed various treatment options including surgery, and the patient wishes to proceed with surgery We discussed the risk, patient's alternatives and benefits of surgery including but not limited to, risk of bleeding risk of infection, risk of need for further surgery, risk of decreased, loss of motion, muscle function, malunion nonunion, hardware failure, nerve damage, paralysis, heart attack, and . OPERATIVE SUMMARY After discussing all the risks, patient alternatives and benefits at length, the patient elected to proceed with surgical intervention, signed informed consent, and presented for their procedure. The patient was seen and examined in the preoperative holding area and the surgical site was marked. The patient was given antibiotics and brought to the operating room. The patient was positioned on the operating room table in a supine position being careful to pad any bony prominences and pressure points. The patient was sedated and intubated by anesthesia in standard fashion. Once the airway and C- spine were stabilized the patient's arms were padded and tucked at her side, with her shoulders gently taped. The head was placed in a donut pad with the neck in good neutral alignment and position. We were careful to maintain the patient's cervical spine and good neutral alignment and position throughout. The patient was prepped and draped in a normal standard fashion. An appropriate timeout and keystone protocol performed. We were able to proceed with the surgery. The local wound area was infiltrated with local anesthetic. An incision was made transversely approximately 2-1/2 cm over the appropriate levels at C6. Dissection was taken down subcutaneously to the level of the platysma which was split in line with its fibers. Dissection was taken with a carotid approach, with the trachea and esophagus medial and the carotid sheath laterally. We dissected down to the anterior surface of the vertebral bodies. Intraoperative x-ray was taken which showed a marker at the appropriate level. With the appropriate level positively confirmed, we were able to proceed with discectomy at the appropriate levels. All of the operative levels were exposed appropriately. The patient had all their twitches back, and there was no evide nce of recurrent laryngeal issue. The wound was copiously irrigated and suctioned dry as had been done periodically throughout the case. At the appropriate level/levels, starting at C5-6 and then moving to C6-7 I established an annulotomy with an 11 blade scalpel. A discectomy was performed with a combination of pituitary rongeurs, curettes, a high-speed bur, and Kerrison rongeurs. The posterior longitudinal ligament was taken down as were any posterior osteophytes. There was large disc herniation and cartilaginous fragment which had extruded and was sitting behind the vertebral body of C6. I was able to mobilize and remove these fragments and get excellent decompression. I felt that we were able to leave the vertebral body intact and perform the discectomy at C5-6 and C6-7 with excellent decompression. Is able to remove any extruded fragments and posterior osteophytes. This gave good central and bilateral foraminal decompression. I did not feel we had to perform a complete corpectomy. There is no evidence of any dural tear or leak. The endplates were prepared with a high-speed bur. With the endplates in good parallel position, I was able to size for the appropriate size interbody graft. The wound was irrigated and suctioned dry the graft was prepared and malleted into position. It had good alignment and position with the anterior surface flush with the anterior surface of the vertebral bodies. This was done similarly the appropriate levels at C5-6 and C6-7. With the grafts intact, I was able to measure and contour and appropriate sized plate. The plate was positioned at the midline over the appropriate levels at C5-6 and 7. Screw holes were established with a hand drill and drill guide. Screws were placed in good alignment and position with excellent bony purchase. They were seated under the locking device. The construct was checked and found to be stable. Intraoperative x-ray was taken which showed good alignment and position of the implants at the appropriate levels. There was no evidence of any dural tear or leak. Good hemostasis was maintained. The wound was copiously irrigated and suctioned dry as had been done periodically throughout the case. The platysma was closed with absorbable suture. The subcutaneous tissue was closed. The subcuticular tissue was closed with absorbable suture. The wound was cleaned and dried and dressed appropriately. A soft cervical collar was placed appropriately. The patient was woken up by anesthesia, extubated, transferred back gently to their hospital bed and brought to the recovery room in good stable condition. The patient will be admitted to the hospital for appropriate postoperative care, medical management and monitoring. We will continue to follow them closely about the postoperative course.
[2024-09-25] MEDS ORDERED: NON FORMULARY DRUG (Dulaglutide [Trulicity] 0.75 MG/0.5 ML Each) SQ SCH (10:45)
[2024-09-25 11:38] LABS: Glucose,Whole Blood 200 mg/dL (70-110)
[2024-09-25] MEDS: SODIUM CHLORIDE 0.9% 1,000 ML IV SCH (14:36)
[2024-09-25] MEDS: ONDANSETRON 4 MG/2 ML VIAL IVP PRN (14:50)
[2024-09-25] MEDS: BENZOCAINE/MENTHOL LOZENG 1 EACH LOZENGE MUCOUS MEM PRN (14:57)
[2024-09-25 16:16] LABS: Glucose,Whole Blood 247 mg/dL (70-110)
[2024-09-25] MEDS: INSULIN LISPRO (HumaLOG) 100 UNIT/ML 10 mL VL SQ SCH (16:55)
[2024-09-25 21:05] LABS: Glucose,Whole Blood 200 mg/dL (70-110)
[2024-09-25] MEDS: GABAPENTIN 300 MG CAP PO SCH (21:57)
[2024-09-25] MEDS: metFORMIN 500 MG TAB PO SCH (21:57)
[2024-09-26 06:10] LABS: Glucose,Whole Blood 175 mg/dL (70-110)
[2024-09-26] MEDS: HYDROcodone/APAP 5-325MG 1 EACH TAB PO PRN (06:21)
[2024-09-26 07:20] VITALS: BP 123/72; PULSE 67; RESP 16; TEMP 98.5
--- NOTE | 2024-09-26 10:17 | P.DS ---
Providers Date of admission: 09/25/2024 Expected date of discharge: 09/26/24 Attending physician: Leigh Martínez Consults: 09/25/24 16:46 Consult Physician Routine Consulting Provider: Darling Cardozo Consult Reason/Comments: medical management Do you want consulting provider notified?: Yes Primary care physician: Brian Lane MD - Discharge Diagnosis(es) (1) Status post cervical spinal fusion Current Visit: Yes Status: Acute (2) Cervical spinal stenosis Current Visit: Yes Status: Acute (3) Cervical herniated disc Current Visit: Yes Status: Acute (4) Radiculopathy affecting upper extremity Current Visit: Yes Status: Acute (5) Diabetes mellitus Current Visit: Yes Status: Acute (6) Tuberculosis Current Visit: Yes Status: Acute Hospital Course: This is a pleasant 58-year-old female who presented with C5-6 and C6-7 cervical stenosis and herniated nucleus pulposus with upper extremity radiculopathy and extruded disc fragment behind C6 who failed outpatient conservative therapy. She was admitted for a C5-6 and C6-7 anterior cervical decompression and fusion. The patient tolerated the procedure well and did well postoperatively. She feels her cervical pain is adequately controlled. She is able to use her arms well this morning without difficulty. She is currently happy with her progress. She was able to eat breakfast this morning. She is eating and voiding without difficulty. She feels ready for discharge today. Condition on day of discharge stable. Patient will be discharged home. Patient was cleared preoperatively for surgery by Dr. Lane. Patient currently denies any nausea, vomiting, fever, or chills. Patient may shower Optifoam dressing intact. Patient may remove Optifoam dressing in 3 days and shower without a dressing at that time. Patient should refrain from driving until at least after their first follow-up appointment in the office. Patient should avoid excessive neck flexion, extension, rotation, and lateral sidebending; no overhead lifting; no lifting greater than 10 pounds. MAPS has been reviewed today, 09/26/2024, with an Overall Overdose Risk Score of 350. An "Opiod Start Talking" Form has been signed and placed in the patient's chart. A prescription has been written for hydrocodone 5 mg / 325 mg, 1 tab, every 6 hours as needed for acute pain, dispense #28. Prescription also written for cyclobenzaprine 10 mg, 1 tab, 3 times daily, as needed for muscle spasm, dispense #60. Prescriptions are sent to the [facility] pharmacy located within [facility] per request of the patient. Patient's other medical diagnoses include diabetes mellitus and history of tuberculosis. Physical Exam on day of discharge: Patient is awake, alert, and oriented 3 Vital signs stable Good chest excursion with deep inspiration and expiration Adequate range of motion of the cervical spine with adequate flexion, extension, and bilateral rotation Bicycle Repairman strength, thumb strength, interosseous strength, biceps strength, triceps strength, and shoulder strength positive sustained bilaterally Soft cervical collar intact; soft collar is removed during physical examination Incision is clean, dry, and intact; no erythema, purulence, or signs of infection Some mild swelling around the anterior cervical incision site Optifoam dressing intact Procedures: C5-6 and C6-7 anterior cervical decompression and fusion Patient Condition at Discharge: Stable Plan - Discharge Summary Discharge Rx Participant: Yes New Discharge Prescriptions: New Cyclobenzaprine [Flexeril] 10 mg PO TID PRN #60 tab PRN Reason: Muscle Spasm HYDROcodone/APAP 5-325MG [[place] 5] 1 each PO Q6HR PRN #28 tab PRN Reason: Pain No Action metFORMIN HCL [Glucophage] 1,000 mg PO BID Gabapentin 300 mg PO HS traMADol HCL 50 mg PO Q6H PRN PRN Reason: Pain FLUoxetine HCL [PROzac] 40 mg PO QAM Dulaglutide [Trulicity] 0.75 mg SQ WE Discharge Medication List metFORMIN HCL [Glucophage] 1,000 mg PO BID 04/30/15 [History] FLUoxetine HCL [PROzac] 40 mg PO QAM 08/28/23 [History] Gabapentin 300 mg PO HS 12/14/23 [History] traMADol HCL 50 mg PO Q6H PRN 04/04/24 [History] Dulaglutide [Trulicity] 0.75 mg SQ WE 04/15/24 [History] Cyclobenzaprine [Flexeril] 10 mg PO TID PRN #60 tab 09/26/24 [Rx] HYDROcodone/APAP 5-325MG [[place] 5] 1 each PO Q6HR PRN #28 tab 09/26/24 [Rx] Follow up Appointment(s)/Referral(s): Jimbo Bo, MARYSOL [PHYSICIAN [employer]] - 10/08/24 (Patient will follow-up as scheduled on 10/08/2024.) Activity/Diet/Wound Care/Special Instructions: 1. Patient may shower with Optifoam dressing intact. 2. Patient may remove Optifoam dressing in 3 days and shower without a dressing at that time. 3. Patient may wear soft cervical collar for comfort support as needed. 4. Patient should refrain from driving until at least after their first follow- up appointment in the office. 5. Patient should avoid excessive cervical flexion, extension, and side bending; avoid overhead lifting; no lifting greater than 10 pounds 6. Take medications as prescribed 7. Patient should avoid anti-inflammatory medications over the next 6 weeks postoperatively 8. Do not soak in tub Discharge Disposition: HOME SELF-CARE
[2024-09-26 11:15] LABS: Glucose,Whole Blood 151 mg/dL (70-110)
[2024-09-26] MEDS: CYCLOBENZAPRINE 10 MG TAB PO PRN (11:37)
== END 2024-09-26 12:18 | disposition home or self-care (01) ==
LOC: OR 06:46 → 4SSUR 10:45 → OR 09-26 12:18
PROVIDERS: ATTEND Orthopaedic Surgery Orthopaedic Surgery of the Spine
DX: M48.02 Spinal stenosis, cervical region (principal); M50.122 Cervical disc disorder at C5-C6 level with radiculopathy; M50.321 Other cervical disc degeneration at C4-C5 level; M50.323 Other cervical disc degeneration at C6-C7 level; M19.011 Primary osteoarthritis, right shoulder; S43.431A Superior glenoid labrum lesion of right shoulder, initial encounter; S46.811A Strain of other muscles, fascia and tendons at shoulder and upper arm level, right arm, initial encounter; E11.9 Type 2 diabetes mellitus without complications; Z86.11 Personal history of tuberculosis; Z98.1 Arthrodesis status; Z79.84 Long term (current) use of oral hypoglycemic drugs; Z79.899 Other long term (current) drug therapy
CPT/HCPCS: 72020; 22551; 22552; 22845; 22853; 20930; J0690 ×2; J2405; J0665